=== PATIENT | male | born 1985 | race Caucasian/White ===

== ENCOUNTER → 2022-05-28 13:16 | Outpatient (BNVA) | payer OTHER, SELFPAY | PROVIDERS: Family Provider Internal Medicine Nephrology; PCP Family Medicine; Visit Provider Clinical Nurse Specialist Adult Health | DX: R30.9 Painful micturition, unspecified (principal); R33.9 Retention of urine, unspecified; N41.0 Acute prostatitis | CPT/HCPCS: 81000; 87086 ==

== ENCOUNTER → 2022-11-11 11:51 | Outpatient (BNVA) | payer OTHER, SELFPAY | PROVIDERS: Family Provider Internal Medicine Nephrology; Visit Provider Family Medicine | DX: R10.13 Epigastric pain (principal); R10.2 Pelvic and perineal pain | CPT/HCPCS: 81003; 87491; 87591 ==

== ENCOUNTER 2022-11-20 09:10 | Day surgery (SDC) | payer OTHER, SELFPAY ==
[2022-11-19 10:18] VITALS: BMI 22.9
[2022-11-20 09:20] VITALS: BMI 24.0
--- NOTE | 2022-11-20 09:41 | ANES.PREANE2 ---
Pre-Anesthetic Assessment Height/Weight: Height 1.73 m Weight 71.668 kg Preop Diagnosis: dysphagia Operation Date: 11/20/22 10:30 Proposed Procedures p 29967 egd with balloon dialation R13.10(Not Applicable) - Anil Nails DO Familial anesthetic complications: none Last intake: Intake Last Liquid Date 11/19/22 Last Liquid Time 23:50 Last Solid Date 11/19/22 Last Solid Time 18:00 Social No alcohol and No tobacco Exam alert, oriented x 3, clear to auscultation bilaterally and regular rate & rhythm Airway Submandibular: within normal limits Cervical ROM: within normal limits Mallampati: Class II Dentition: full Pulmonary None reported CV/HEM None reported None reported Hepatic None reported GI Gastroesophageal Reflux Disease dysphagia, chronic nausea denies symptoms today. Metabolic None reported Musc/skel None reported Neuropsych None reported Anesthetic Plan ASA status: 1 Medications/Allergies Home Medications Medication Instructions Recorded Confirmed Last Taken Type hydroxyzine HCl 25 mg tablet 25 mg PO BID PRN itching #60 tabs 11/11/22 11/19/22 11/19/22 Rx ciprofloxacin HCl 500 mg tablet 500 mg PO Q12H 28 days #56 tabs 11/14/22 11/20/22 11/20/22 Rx Lactobacillus acidophilus 20 100 mmu cells PO DAILY 11/19/22 11/20/22 11/19/22 History billion cell capsule (Florajen Acidophilus) pantoprazole 40 mg tablet,delayed 40 mg PO BID 6 weeks #84 tabs 11/19/22 11/20/22 11/19/22 Rx release (Protonix) Allergies Allergy/AdvReac Type Severity Reaction Status Date / Time cefadroxil [From Duricef] Allergy Intermediate ADR-rash Verified 11/19/22 10:16 [facility] Anesthesia Surgical History No history of previous surgery Family History Mother Hypertension Hyperlipidemia Father Hypertension Hyperlipidemia Hiatal hernia Social History Smoking and tobacco status: never smoked Alcohol intake: never Substance/Drug Use: never Lives independently: Yes Household members: spouse and children Marital status: Number of children: 3 Current occupational status: employed Current occupation: [employer] laborer Leisure activites: hunting and fishing Data Anesthesia Cardiac Studies: No Data to Display
[2022-11-20] MEDS: sodium chloride 0.9% 1,000 ML 30 ML IV (09:53)
--- NOTE | 2022-11-20 09:54 | W.PM.OPSUD ---
Surgery/Procedure H&P Update DATE OF PROCEDURE: November 20, 2022 DATE H&P PERFORMED: 11/19/22 H&P UPDATE INFORMATION: I have reviewed H&P completed within last 30 days, I have examined patient prior to procedure and No changes to prior documentation PREOP DIAGNOSIS: dysphagia PLANNED PROCEDURE: Operation Date: 11/20/22 10:30 Proposed Procedures p 57048 egd with balloon dialation R13.10(Not Applicable) - Anil Nails DO
[2022-11-20 10:10] VITALS: BP 97/67; PULSE 63; RESP 16; TEMP 36.5; O2SAT 98
[2022-11-20 10:19] VITALS: BP 109/72; PULSE 63; RESP 16; O2SAT 98
[2022-11-20 10:26] VITALS: BP 113/85; PULSE 62; RESP 18; O2SAT 99
== END 2022-11-20 10:51 | disposition home or self-care (01) ==
PROVIDERS: Visit Provider Surgery
DX: R13.10 Dysphagia, unspecified (principal); K21.9 Gastro-esophageal reflux disease without esophagitis
CPT/HCPCS: 43239; 88305; J2704; J7030